=== PATIENT | male | born 1975 | race Caucasian/White ===

== ENCOUNTER 2022-08-13 08:10 | Outpatient (CLI) | payer BC, SELFPAY | END 2022-08-13 08:11 | disposition home or self-care (01) | LOC: NFLDREF 08-14 15:01 | PROVIDERS: PCP Family Medicine; Referring Provider Family Medicine; Visit Provider Family Medicine | DX: Z00.00 Encounter for general adult medical examination without abnormal findings (principal); E78.5 Hyperlipidemia, unspecified | CPT/HCPCS: 80053; 80061 ==

== ENCOUNTER 2022-09-17 10:16 | Outpatient (CLI) | payer BC, SELFPAY ==
--- NOTE | 2022-09-17 09:11 | W.ANESCHARGE ---
Anesthesia Charges Start Date/Time Anesthesia Start Date: 09/17/22 Anesthesia Start Time: 11:35 Stop Date/Time Anesthesia Stop Date: 09/17/22 Anesthesia Stop Time: 12:10
--- NOTE | 2022-09-17 09:11 | PM.ANHP ---
HPI - Pre-Anesthesia History of Present Illness Time Seen by Provider: 11:10 Date Seen: 09/17/22 Date of service: 09/17/22 Source: patient and old records reviewed Review of Systems Status of ROS Reports: 6 or more systems reviewed and unremarkable except as noted in History and below [facility] Medical History Dyslipidemia ?E78.5 - Hyperlipidemia, unspecified (ICD-10) Tightness of neck ?R29.898 - Other symptoms and signs involving the musculoskeletal system (ICD-10) History of eczema ?Z87.2 - Personal history of diseases of the skin and subcutaneous tissue (ICD-10) Surgical History Status post tonsillectomy (1984) ?Z90.89 - Acquired absence of other organs (ICD-10) History of third molar tooth extraction (1989) ?K08.409 - Partial loss of teeth, unspecified cause, unspecified class (ICD-10) Family History Paternal Grandfather Lung cancer Uncle Myocardial infarction Father High blood pressure Social History Narrative: , 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[employer], 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, from [facility], Drinks 14 bernice per week Exercise twice a week walking/jogging Nonsmoker What is your current living situation?: I presently have a place to live Problems where you live: mold In the past 12 months, utilities in danger of being shut off: no In the past 12 mos, have been you worried that your food would run out before you had money to buy more?: never true In the past 12 mos, the food you bought just didn't last and you didn't have money to buy more?: never true How often does anyone, including family, friends and others, physically hurt you: How often does anyone, including family, friends and others, insult or talk down to you: How often does anyone, including family, friends and others, threaten you with harm: How often does anyone, including family, friends and others, scream or curse at you: Little interest or pleasure in doing things: several days Feeling down, depressed, or hopeless: not at all Meds Home Medications and Allergies Home Medications Medication Instructions Recorded Confirmed Type fexofenadine 180 mg tablet 180 mg PO DAILY 08/14/22 09/12/22 History multivitamin 1 tab PO QAM 08/14/22 09/12/22 History omega-3s 300 kd-nus-sbw-other 2 cap PO DAILY 08/14/22 09/12/22 History [id number] oil 1,000 mg capsule ([facility]-3 Fish Oil) Allergies Allergy/AdvReac Type Severity Reaction Status Date / Time No Known Drug Allergies Allergy Verified 09/12/22 09:03 Exam Const Documenting provider has reviewed patient's vital signs: yes Common normals: no apparent distress, oriented x3, healthy appearing, alert and well nourished General appearance: cooperative and comfortable Orientation/consciousness: Yes awake HENMT Common normals: normocephalic Head and scalp: normocephalic and other (dressing on surgical site) Neck & C-Spine Common normals: full ROM Chest Chest: symmetrical chest wall rise Resp Common normals: normal respiratory effort, no retractions, no use of accessory muscles and clear to auscultation bilaterally Auscultation: clear to auscultation bilaterally Cardio Common normals: regular rate, regular rhythm, S1 normal heart sound, S2 normal heart sound and no murmurs Rate: regular rate Rhythm: regular rhythm Heart sounds: S1 normal and S2 normal Neuro Common normals: oriented x3 Sensorium/orientation: awake and alert Assessment and Plan Assessment and plan (1) Encounter for screening colonoscopy: Status: Acute Plan ok for sedation for colonoscopy
--- NOTE | 2022-09-17 12:09 | W.ANESCHARGE ---
Anesthesia Charges Start Date/Time Anesthesia Start Date: 09/17/22 Anesthesia Start Time: 11:35 Stop Date/Time Anesthesia Stop Date: 09/17/22 Anesthesia Stop Time: 12:10
== END 2022-09-17 10:17 | disposition home or self-care (01) ==
LOC: OP CLINIC 10:17
PROVIDERS: PCP Family Medicine; Visit Provider Surgery
DX: Z12.11 Encounter for screening for malignant neoplasm of colon (principal); K63.5 Polyp of colon; Z83.71 Family history of colonic polyps
CPT/HCPCS: 45380; 811; 88305; J2704

== ENCOUNTER 2024-03-30 08:40 | Outpatient (CLI) | payer BC, SELFPAY | END 2024-03-30 08:41 | disposition home or self-care (01) | LOC: NFLDREF 04-01 09:28 | PROVIDERS: PCP Family Medicine; Referring Provider Family Medicine; Visit Provider Family Medicine | DX: E78.5 Hyperlipidemia, unspecified (principal); Z12.5 Encounter for screening for malignant neoplasm of prostate; R53.83 Other fatigue; R73.01 Impaired fasting glucose | CPT/HCPCS: 80053; 80061; G0103 ==

== ENCOUNTER 2024-07-01 07:37 | Outpatient (CLI) | payer BC, SELFPAY | END 2024-07-01 07:38 | disposition home or self-care (01) | LOC: NFLDREF 07-08 01:53 | PROVIDERS: PCP Family Medicine; Referring Provider Family Medicine; Visit Provider Family Medicine | DX: E78.5 Hyperlipidemia, unspecified (principal) | CPT/HCPCS: 80061 ==